=== PATIENT | male | born 1955 | race Caucasian/White ===

== ENCOUNTER 2022-01-09 11:50 | Emergency (ER) | payer MEDICARE, MEDICAID, SELFPAY ==
[2022-01-09 11:50] VITALS: BP 135/109; PULSE 78; RESP 18; TEMP 36.2; O2SAT 98; BMI 30.4
[2022-01-09] MEDS: fentaNYL 100 MCG/2 ML Ampul 50 MCG IV (11:55)
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
--- NOTE | 2022-01-09 12:00 | ED.RN ---
[facility] WAS MADE AWARE OF PATIENT PRIOR TO PATIENTS ARRIVAL. [facility] TEAM AT BEDSIDE UPON PATIENT ARRIVAL. DR. HEADLEY AT BEDSIDE WELL. PATIENT EVALUATED BY PHYSICIANS. [facility] TO TRANSPORT PATIENT TO [facility].
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
[2022-01-11 07:35] LABS: Bedside Glucose 107 mg/dL (74-106)
== END 2022-01-09 12:05 | disposition short-term general hospital (02) ==
LOC: ED 12:10
PROVIDERS: Emergency Provider Emergency Medicine; Visit Provider Emergency Medicine
DX: S50.312A Abrasion of left elbow, initial encounter (principal); J44.9 Chronic obstructive pulmonary disease, unspecified; S50.311A Abrasion of right elbow, initial encounter; M54.9 Dorsalgia, unspecified; F17.210 Nicotine dependence, cigarettes, uncomplicated; Z99.81 Dependence on supplemental oxygen; V89.2XXA Person injured in unspecified motor-vehicle accident, traffic, initial encounter
CPT/HCPCS: 82962; 96374; 99285